=== PATIENT | male | born 2000 | race African-American/Black ===

== ENCOUNTER 2019-08-10 19:23 | Emergency (ER) | payer SELFPAY ==
[2019-08-10 19:30] VITALS: BP 119/68
[2019-08-10] MEDS ORDERED: DIPH/PERTUSS(ACELL)/TETANUS VAC/PF 0.5 ML SYR (>=10YO) IM ONE (20:09)
[2019-08-10] MEDS ORDERED: PENICILLIN V POTASSIUM 500 MG TABLET PO ONE (20:09)
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
== END 2019-08-10 20:22 | disposition home or self-care (01) ==
LOC: ER 19:23
DX: S01.512A Laceration without foreign body of oral cavity, initial encounter (principal); S01.531A Puncture wound without foreign body of lip, initial encounter; W45.8XXA Other foreign body or object entering through skin, initial encounter; Y93.67 Activity, basketball; J45.909 Unspecified asthma, uncomplicated; Z23 Encounter for immunization
CPT/HCPCS: 90471; 90715; 99282